=== PATIENT | male | born 1955 | race Caucasian/White ===

== ENCOUNTER 2022-05-02 13:03 | Observation (INO) | payer MEDICARE, BC, OTHER ==
[2022-05-02 13:43] LABS: Basophils % (A) 0 %; Eosinophils # (A) 0.1 k/uL (0-0.7); Eosinophils % (A) 1 %; HCT 46.2 % (39.0-53.0); Lymphocytes # (A) 1.7 k/uL (1.0-4.8); Lymphocytes % (A) 26 %; MCH 29.8 pg (25.0-35.0); MCHC 34.6 g/dL (31.0-37.0); MCV 86.3 fL (80.0-100.0); Mean Platelet Volume 7.5; Monocytes # (A) 0.4 k/uL (0-1.0); Monocytes % (A) 6 %; Neutrophils # (A) 4.2 k/uL (1.3-7.7); Neutrophils % (A) 65 %; Platelet Count 211 k/uL (150-450); RBC 5.35 m/uL (4.30-5.90); RDW 12.8 % (11.5-15.5); WBC 6.5 k/uL (3.8-10.6)
[2022-05-02 13:53] LABS: Albumin 4.5 g/dL (3.5-5.0); Calcium 9.5 mg/dL (8.4-10.2); Magnesium 2.1 mg/dL (1.6-2.3); Potassium 4.1 mmol/L (3.5-5.1); Total Bilirubin 0.9 mg/dL (0.2-1.3); Total Protein 7.6 g/dL (6.3-8.2)
[2022-05-02 13:54] LABS: Partial Thromboplastin Time 24.5 sec (22.0-30.0); Prothrombin Time 11.2 sec (9.0-12.0)
--- NOTE | 2022-05-02 13:54 | ED ---
Chest Pain HPI - General Chief Complaint: Chest Pain Stated Complaint: chest pain Source: patient Mode of arrival: ambulatory Limitations: no limitations - History of Present Illness Initial Comments: 67-year-old male with past medical history of CO who presents to the emergency department with chest pain and shortness of breath that started last night. Pain is located over the left side of the chest wall and is described as a pressure sensation without radiation. Reports to pounding heart rate. Symptoms are intermittent. Not presents upon hospital arrival. Does state that he's had a history of an CO in his 40s. He did not require stent placement. He has not followed with cardiology in several years. No recent stress testing. He denies fevers, chills or cough. No numbness or tingling into his extremities. No ripping or tearing sensation to his back. No other alleviating, precipitating or modifying factors - Related Data Home Medications Medication Instructions Recorded Confirmed Ibuprofen [Motrin] 800 mg PO TID PRN 05/02/22 05/02/22 Allergies Allergy/AdvReac Type Severity Reaction Status Date / Time clindamycin Allergy Rash/Hives Verified 05/02/22 14:55 sulfamethoxazole Allergy Rash/Hives Verified 05/02/22 14:55 [From Bactrim] trimethoprim [From Bactrim] Allergy Rash/Hives Verified 05/02/22 14:55 Review of Systems ROS Statement: Those systems with pertinent positive or pertinent negative responses have been documented in the HPI. ROS Other: All systems not noted in ROS Statement are negative. EKG Findings - EKG Comments: EKG Findings:: EKG demonstrates sinus rhythm with a rate of 60. DC interval 171. QRS 110. QTC of 411. No acute ST segment elevations. Inverted T waves with ST depression in lead 3 Past Medical History Past Medical History: Myocardial Infarction ([place]), Pneumonia Additional Past Medical History / Comment(s): BLOOD IN STOOL Last Myocardial Infarction Date:: 1999 History of Any Multi-Drug Resistant Organisms: MRSA Date of last positivie culture/infection: 2013 MDRO Source:: BACK Additional Past Surgical History / Comment(s): CHEST TUBE Past Anesthesia/Blood Transfusion Reactions: No Reported Reaction Past Psychological History: No Psychological Hx Reported Past Alcohol Use History: Rare Past Drug Use History: None Reported - Past Family History Mother Family Medical History: Cancer General Exam Limitations: no limitations Course Vital Signs 05/02/22 05/02/22 05/02/22 13:17 13:40 15:44 Temperature 97.6 F Pulse Rate 56 L 67 62 Pulse Rate [ Right] Respiratory 16 16 Rate Blood Pressure 161/97 165/93 142/79 Blood Pressure [Right Arm] O2 Sat by Pulse 98 99 96 Oximetry 05/02/22 16:00 Temperature 97.7 F Pulse Rate Pulse Rate [ 67 Right] Respiratory 17 Rate Blood Pressure Blood Pressure 147/84 [Right Arm] O2 Sat by Pulse 98 Oximetry Chest Pain MDM - MDM Upon arrival patient is placed into room 3. Thorough history and physical exam was performed. 12 lead EKG is obtained. Patient remained to continuous pulse ox and cardiac monitoring. Laboratory studies were conducted and reviewed. Troponin is negative. Chest x-ray demonstrates no acute process. Did recommend admission due to history of previous cardiac disease without significant cardiac evaluation. Patient was agreeable to this. Spoke with Dr. De La Fuente was agreeable Disposition Clinical Impression: Chest pain Disposition: ADMITTED IP TO THIS HOSP Condition: Stable Is patient prescribed a controlled substance at d/c from ED?: No Time of Disposition: 15:11 Decision to Admit Reason: Admit from EC Decision Date: 05/02/22 Decision Time: 15:11
--- NOTE | 2022-05-02 14:10 | XR ---
EXAMINATION TYPE: XR chest 2V DATE OF EXAM: 05/02/2022 COMPARISON: NONE HISTORY: Chest pain TECHNIQUE: FINDINGS: Heart and mediastinum are normal. Lungs are clear. Diaphragm is normal. Bony thorax appears intact. There is mild pectus excavatum chest deformity. IMPRESSION: Normal chest.
[2022-05-02] MEDS ORDERED: ASPIRIN 325 MG TAB PO STA (15:11)
[2022-05-02] MEDS ORDERED: NALOXONE 0.4 MG/ML 1 ML VIAL IV PRN (15:12)
--- NOTE | 2022-05-02 15:46 | P.HPIM ---
History of Present Illness H&P Date: 05/02/22 Chief Complaint: chest pain Patient is a 67-year-old former smoker presenting with acute chest pain that started at 10 PM yesterday. He claims that recently he has been going through a lot of stress with taking care of his . His is nonambulatory, and he has to help her move. While moving her at 10 PM, he started to experience chest pain in the substernal to left-sided region. To him he felt like a thumping sensation. He denies any radiation. He does occasionally feel short of breath after the chest pain. Chest pain is intermittent since last night and not always relieved with rest. Currently he is experiencing about 4/10 chest pain. He denies any lightheadedness, palpitations, nausea, vomiting, abdominal pain, diarrhea, constipation, or urinary complaints. He denies any recent sick contacts, or travel history. He is a former smoker, smoked 40 years one pack per day and quit in 2011. His father had an [place] at age 70, his mother had diabetes at age 60. Patient was sick with COVID-19 in 2019 and developed pericarditis. He did have similar chest pain at that time, but has resolved completely 3 months ago. When he was in his 20s, he did have a wall scraper that told him he had a valvular regurgitation. He had prior stress test, unclear when, which were negative. In the ED, patient's vital signs were unremarkable except for blood pressure 161/97. His lab work showed a creatinine of 1.29. Troponin was negative 1. EKG showed sinus rhythm with nonspecific ST changes. Chest x-ray was normal. Pertinent positives and negatives as discussed in HPI, a complete review of systems was performed and all other systems are negative. Patient seen and examined at bedside. Vital signs reviewed General: nontoxic, no distress, appears at stated age Derm: warm, dry Head: atraumatic, normocephalic, symmetric Eyes: EOMI, no lid lag, anicteric sclera, pupils equal round reactive to light ENT: Nose and ears atraumatic Neck: No thyromegaly, trachea midline, supple Mouth: no lip lesion, mucus membranes moist Cardiovascular: S1S2 reg, no murmur, positive posterior tibial pulse bilateral, no edema, capillary refill less than 2 seconds Lungs: clear to auscultation bilateral, no rhonchi, no rales, no wheeze, no accessory muscle use Abdominal: soft, nontender to palpation, no guarding, no appreciable organomegaly, normal bowel sounds Ext: no gross muscle atrophy, muscle strength muscle strength 5 out of 5 in all 4 extremities, no contractures Neuro: CN II-XII grossly intact, light touch intact all 4 extremities Psych: Alert, oriented, appropriate affect Assessment/Plan: Acute chest pain, rule out ACS -EKG - sinus rhythm with nonspecific ST changes -Chest x-ray -Troponin negative 1, repeat pending -Echocardiogram pending -TSH, hemoglobin A1c, lipid panel -Cardiology consult -Patient received aspirin 325 in the ED ANNA, possible -No prior labs to compare - Cr 1.29 - Monitor urine output, renal function Possible hypertension -Patient claims that his blood pressure is normal at PCP office -will monitor The patient is admitted with an anticipated less than 2 midnight stay for evaluation of chest pain. Surrogate decision-maker: CODE STATUS: DNR/DNI DVT prophylaxis: Heparin subcu Anticipated discharge date: 05/[address]: Home A total of 45 minutes was spent on the care of this complex patient more than 50% of the time was spent in counseling and care coordination. Past Medical History Past Medical History: Myocardial Infarction ([place]), Pneumonia Additional Past Medical History / Comment(s): BLOOD IN STOOL Last Myocardial Infarction Date:: 1999 History of Any Multi-Drug Resistant Organisms: MRSA Date of last positivie culture/infection: 2013 MDRO Source:: BACK Additional Past Surgical History / Comment(s): CHEST TUBE Past Anesthesia/Blood Transfusion Reactions: No Reported Reaction Past Psychological History: No Psychological Hx Reported Smoking Status: Former smoker Past Alcohol Use History: Rare Past Drug Use History: None Reported - Past Family History Mother Family Medical History: Cancer, Diabetes Mellitus, Myocardial Infarction (WA) Medications and Allergies Home Medications Medication Instructions Recorded Confirmed Type Ibuprofen [Motrin] 800 mg PO TID PRN 05/02/22 05/02/22 History Allergies Allergy/AdvReac Type Severity Reaction Status Date / Time clindamycin Allergy Rash/Hives Verified 05/02/22 14:55 sulfamethoxazole Allergy Rash/Hives Verified 05/02/22 14:55 [From Bactrim] trimethoprim [From Bactrim] Allergy Rash/Hives Verified 05/02/22 14:55 Physical Exam Vitals: Vital Signs Temp Pulse Resp BP Pulse Ox 05/02/22 15:44 62 142/79 96 05/02/22 13:40 67 16 165/93 99 05/02/22 13:17 97.6 F 56 L 16 161/97 98 Intake and Output 05/02/22 05/02/22 05/02/22 06:59 14:59 22:59 Other: Weight 88.451 kg Results CBC & Chem 7: 05/02/22 13:23 05/02/22 13:23 Labs: Abnormal Lab Results - Last 24 Hours (Table) 05/02/22 Range/Units 13:23 Creatinine 1.29 H (0.66-1.25) mg/dL Glucose 104 H (74-99) mg/dL
[2022-05-02] MEDS: HEPARIN SODIUM,PORCINE/PF 5,000 UNIT/0.5 ML SYRINGE SQ SCH ×2 (16:21→23:33)
[2022-05-03] MEDS: HEPARIN SODIUM,PORCINE/PF 5,000 UNIT/0.5 ML SYRINGE SQ SCH ×2 (08:18→16:44)
[2022-05-03] MEDS ORDERED: ASPIRIN 81 MG PO SCH (09:00)
[2022-05-03 09:31] LABS: Basophils # (A) 0.02 X 10*3/uL (0.00-0.10); Basophils % (A) 0.3 %; Eosinophils % (A) 1.6 %; HCT 43.1 % (39.6-50.0); HGB 14.4 g/dL (13.0-17.0); Immature Grans, Automated 0.2 %; Lymphocytes # (A) 2.07 X 10*3/uL (0.90-5.00); Lymphocytes % (A) 33.3 %; MCH 28.7 pg (27.0-32.0); MCHC 33.4 g/dL (32.0-37.0); MCV 85.9 fL (80.0-97.0); Mean Platelet Volume 9.9 fL (9.5-12.2); Monocytes # (A) 0.55 X 10*3/uL (0.20-1.00); Monocytes % (A) 8.8 %; NRBC Per 100 WBC 0 /100 WBCS (0.0-0.0); Neutrophils # (A) 3.47 X 10*3/uL (1.80-7.70); Neutrophils % (A) 55.8 %; Platelet Count 174 X 10*3/uL (140-440); RBC 5.02 X 10*6/uL (4.40-5.60); RDW 12.4 % (11.5-14.5); WBC 6.22 X 10*3/uL (4.50-10.00)
[2022-05-03 09:47] LABS: African American GFR (CKD) 63.5 (60.0-200.0); BUN/Creat Ratio 10.52 Ratio (12.00-20.00); Blood Urea Nitrogen 14.1 mg/dL (9.0-27.0); Calcium 8.8 mg/dL (8.7-10.3); Carbon Dioxide 24.3 mmol/L (20.0-27.5); Chloride 106 mmol/L (96-109); Chol/HDL Ratio 5.48 Ratio; Glucose 90 mg/dL (70-110); LDL Cholesterol,Calculated 140.6 mg/dL (0.0-131.0); Non-African American GFR(CKD) 54.8 (60.0-200.0); Potassium 4.2 mmol/L (3.5-5.5); Sodium 142 mmol/L (135-145); VLDL Calculation 18.76 mg/dL (5.00-40.00)
[2022-05-03] MEDS ORDERED: MAG HYDROX/AL HYDROX/SIMETH 30 ML, HYOSCYAMINE ELIXIR 10 ML, LIDOCAINE VISCOUS 2% 10 ML PO ONE ×3 (10:00)
--- NOTE | 2022-05-03 10:08 | P.CRDCN ---
History of Present Illness History of present illness: HISTORY OF PRESENTING ILLNESS This is a pleasant 67-year-old male past medical history significant for states he was told he had an [place] with no stenting per patient in his 40s, Covid-19 in 2020 and developed pericarditis, family history of coronary artery disease. He does not follow with a compound specialist. We have been asked to see in consultation for chest pain. Patient presents to the emergency department with complaints of chest discomfort. He states for months he has been having this "knot" feeling in the middle of his chest. He states yesterday he was at home, helping his who is the ultrasonic solderer of. He states he was helping move her. He had left sided chest discomfort. Non-radiating, non-exertional. He felt a "thumping" sensation in his chest. He states this has happened before but not this intense. He states he had associated shortness of breath. He states it lasted for less than a minute. He presents to the emergency room for further evaluation. He denies a history of stroke, hypertension, diabetes, dyslipidemia kidney disease. He is a former smoker, quit in 2011. DIAGNOSTICS * EKG reveals sinus bradycardia, heart rate 59, slow R wave progression, anterior changes that likely reflect prior infarct, second EKG with similar findings * Telemetry tracings indicate sinus rhythm, heart rate 50s to 60s, one episode of 6 beat run of NSVT. * Chest xray no acute cardiopulmonary process * Laboratory reviewed, troponin negative 3, CBC unremarkable, sodium 142, potassium 4.2, BUN 14.1, serum creatinine 1.3, triglycerides 93, LDL 140, HDL 35, TSH within normal limits, cholesterol 195 * Current home medications include PRN ibuprofen REVIEW OF SYSTEMS At the time of my exam: CONSTITUTIONAL: Denies fever or chills. CARDIOVASCULAR: Denies chest pain, shortness of breath, orthopnea, PND or palpitations. RESPIRATORY: Denies cough. GASTROINTESTINAL: Denies abdominal pain, diarrhea, constipation, nausea or vomiting. MUSCULOSKELETAL: Denies myalgias. NEUROLOGIC: Denies numbness, tingling, headache or weakness. ENDOCRINE: Denies fatigue, weight change, polydipsia or polyurina. GENITOURINARY: Denies burning, hematuria or urgency with micturation. HEMATOLOGIC: Denies history of anemia or bleeding. PHYSICAL EXAMINATION Blood pressure 145/81, heart 64, afebrile, saturations 97% on room air CONSTITUTIONAL: No apparent distress. HEENT: Head is normocephalic. Pupils are equal, round. Sclerae anicteric. Mucous membranes of the mouth are moist. No JVD. No carotid bruit. CHEST EXAMINATION: Lungs are clear to auscultation. No chest wall tenderness is noted on palpation or with deep breathing. HEART EXAMINATION: Regular rate and rhythm. S1, S2 heard. No murmurs, gallops or rub. ABDOMEN: Soft, nontender. Positive bowel sounds. EXTREMITIES: 2+ peripheral pulses, no lower extremity edema and no calf tenderness. SKIN: warm, dry NEUROLOGIC EXAMINATION: Patient is awake, alert and oriented x3. ASSESSMENT Chest pain, atypical, acute coronary syndrome has been ruled out Per patient history of W[place] with no stenting History of pericarditis Family history of coronary artery disease Former tobacco use Dyslipidemia PLAN An acute coronary event has been ruled out with no EKG evidence of ischemia and negative cardiac enzymes. Obtain 2D echocardiogram and doppler study to assess cardiac structure and function. Perform Stress Echo test to assess for stress induced cardiac ischemia. If abnormal will consider coronary angiography. Lipid panel reviewed, Current 10 year ASCVD risk 19.9% start patient on statin Continue aspirin 81mg daily If stress test and echocardiogram with no acute findings, no further inpatient workup from a cardiology perspective and recommend outpatient follow up Thank you kindly for this consultation. Nurse practitioner note has been reviewed by physician. Signing provider agrees with the documented findings, assessment, and plan of care. Past Medical History Past Medical History: Myocardial Infarction ([place]), Pneumonia Additional Past Medical History / Comment(s): BLOOD IN STOOL Last Myocardial Infarction Date:: 1999 History of Any Multi-Drug Resistant Organisms: MRSA Date of last positivie culture/infection: 2013 MDRO Source:: BACK Additional Past Surgical History / Comment(s): CHEST TUBE Past Anesthesia/Blood Transfusion Reactions: No Reported Reaction Past Psychological History: No Psychological Hx Reported Past Alcohol Use History: Rare Past Drug Use History: None Reported - Past Family History Mother Family Medical History: Cancer Medications and Allergies Home Medications Medication Instructions Recorded Confirmed Type Ibuprofen [Motrin] 800 mg PO TID PRN 05/02/22 05/02/22 History Allergies Allergy/AdvReac Type Severity Reaction Status Date / Time clindamycin Allergy Rash/Hives Verified 05/02/22 14:55 sulfamethoxazole Allergy Rash/Hives Verified 05/02/22 14:55 [From Bactrim] trimethoprim [From Bactrim] Allergy Rash/Hives Verified 05/02/22 14:55 Physical Exam Vitals: Vital Signs Temp Pulse Pulse Resp BP BP Pulse Ox 05/03/22 02:44 97.9 F 62 17 95/61 96 05/02/22 19:36 98.1 F 74 16 143/84 98 05/02/22 16:00 97.7 F 67 17 147/84 98 05/02/22 15:44 62 142/79 96 05/02/22 13:40 67 16 165/93 99 05/02/22 13:17 97.6 F 56 L 16 161/97 98 Intake and Output 05/02/22 05/03/22 05/03/22 22:59 06:59 14:59 Intake Total 240 Balance 240 Intake: Oral 240 Other: Voiding Method Toilet # Voids 2 2 Weight 88.451 kg Results 05/03/22 05:41 05/03/22 05:41 Cardiac Enzymes 05/02/22 05/02/22 05/02/22 Range/Units 13:23 13:23 17:51 AST 29 (17-59) U/L Troponin I <0.012 <0.012 (0.000-0.034) ng/mL 05/02/22 Range/Units 20:42 AST (17-59) U/L Troponin I <0.012 (0.000-0.034) ng/mL Coagulation 05/02/22 Range/Units 13:23 PT 11.2 (9.0-12.0) sec APTT 24.5 (22.0-30.0) sec CBC 05/02/22 Range/Units 13:23 WBC 6.5 (3.8-10.6) k/uL RBC 5.35 (4.30-5.90) m/uL Hgb 16.0 (13.0-17.5) gm/dL Hct 46.2 (39.0-53.0) % Plt Count 211 (150-450) k/uL Comprehensive Metabolic Panel 05/02/22 Range/Units 13:23 Sodium 139 (137-145) mmol/L Potassium 4.1 (3.5-5.1) mmol/L Chloride 105 (98-107) mmol/L Carbon Dioxide 23 (22-30) mmol/L BUN 14 (9-20) mg/dL Creatinine 1.29 H (0.66-1.25) mg/dL Glucose 104 H (74-99) mg/dL Calcium 9.5 (8.4-10.2) mg/dL AST 29 (17-59) U/L ALT 21 (4-49) U/L Alkaline Phosphatase 72 (38-126) U/L Total Protein 7.6 (6.3-8.2) g/dL Albumin 4.5 (3.5-5.0) g/dL Current Medications Generic Name Dose Route Start Last Admin Trade Name Freq PRN Reason Stop Dose Admin Aspirin 81 mg 05/03/22 09:00 Aspirin 81 Mg PO DAILY LAVERNE Heparin Sodium (Porcine) 5,000 unit 05/02/22 16:00 05/02/22 23:33 Heparin Sodium,Porcine/Pf 5,000 Unit/0.5 Ml Syringe SQ Not Given Q8HR LAVERNE Naloxone HCl 0.2 mg 05/02/22 15:12 Naloxone 0.4 Mg/Ml 1 Ml Vial IV Q2M PRN Opioid Reversal Intake and Output 05/02/22 05/03/22 05/03/22 22:59 06:59 14:59 Intake Total 240 Balance 240 Intake: Oral 240 Other: Voiding Method Toilet # Voids 2 2 Weight 88.451 kg 05/02/22 13:23 05/02/22 13:23
--- NOTE | 2022-05-03 13:14 | NM ---
EXAMINATION TYPE: NM stress cardiolite complete DATE OF EXAM: 05/03/2022 COMPARISON: NONE HISTORY: Chest pain TECHNIQUE: After the intravenous administration of 9.9 mCi Tc 99m Sestamibi - Rest images obtained 4 5 minutes post injection. The patient exercised using a MIGUELINA protocol and 1 minute prior to peak e xercise was injected with 25.4 mCi Tc 99m Sestamibi - Stress images obtained 10 minutes post injectio n. Patient achieved 100% of predicted maximal heart rate. FINDINGS: Targeted heart rate was achieved during performance of the study. Review of stress and rest SPECT alexander ges demonstrates decreased uptake on stress and rest images along the inferior wall left ventricle. Gut activity noted on the rest images. Gated analysis shows normal wall motion with an estimated lef t ventricular ejection fraction of 55 %. IMPRESSION: No scintigraphic evidence for reversible ischemia. Findings suggest prior infarct.
[2022-05-03 15:47] VITALS: BP 155/83; PULSE 70; RESP 17; TEMP 98
--- NOTE | 2022-05-03 17:04 | P.DS ---
Providers Date of admission: 05/02/22 15:12 Expected date of discharge: 05/03/22 Attending physician: Lorena Chaves MD Consults: 05/02/22 15:12 Consult Physician Urgent Consulting Provider: [facility] Consult Reason/Comments: acute chest pain, possible acs Do you want consulting provider notified?: Yes Primary care physician: Kervin Reed Hospital Course: Discharge Diagnosis: Chest pain, acute coronary event ruled out Hyperlipidemia, patient started on atorvastatin 20 mg nightly. GERD History of CAD with previous SD History of pericarditis Hospital Course: Patient is a very pleasant 67-year-old male with a past medical history of CAD with previous SD, Covid 19 and 2020 followed by development of pericarditis. He presented to the emergency department on 05/02/22 with a chief complaint of chest pain. Patient reports he has been under increased stress and has been caring for his ill . Patient reports while lifting his he developed sudden onset pain to midsternal and left anterior chest accompanied by a thumping sensation and mild shortness of breath. He underwent full evaluation in the emergency department. CBC, coags, and CMP were unremarkable. EKG showing sinus rhythm at 66 bpm with no noted T wave or ST abnormality showing no signs of acute ischemia. Chest x-ray negative for acute cardiopulmonary process. Troponin negative at less than 0.012. Patient was admitted under our services with consultation to cardiology. Troponins were trended overnight all negative at less than 0.012. Patient reports full resolution of previously reported chest pain, palpitations, and shortness of breath. He does report experiencing some mild gastric reflux this morning. Lipid profile revealing an elevated LDL of 140.6 and a low HDL of 35.60. Patient was evaluated by cardiology and underwent a Cardiolite stress test. Cardiolite stress test revealed EF of 55% negative for scintigraphic evidence for reversible ischemia but did show findings suggestive of prior infarct. Cardiology recommending outpatient follow-up in the office. Patient is medically clear at this time. He was started on atorvastatin 20 mg nightly secondary to elevated LDL levels. Patient to follow up outpatient with PCP in 1-2 days and with cardiology in 2 weeks. Physical exam: Patient seen and examined at bedside and reports he has remained free from any chest pain, palpitations, or shortness of breath. Vital signs reviewed and stable. General: Nontoxic, no distress and appears stated age. Derm: Skin warm and dry, normal coloration for ethnicity. Head: Atraumatic, normocephalic and symmetric. Eyes: EOMs intact, no lid lag, and anicteric sclera Mouth: no lip lesions, mucus membranes moist Cardiovascular: regular rate and rhythm with normal S1S2, no murmur, positive posterior tibial pulses bilaterally, and cap refill < 2 seconds. Lungs: Respirations even, regular, and unlabored on room air. Lungs CTA bilaterally, no rhonchi, no rales, no wheezing, and no accessory muscle usage. Abdominal: soft, nontender to palpation, no guarding, no appreciable organomegaly Ext: ROM intact. No gross muscle atrophy, no edema, no contractures Neuro: Speech clear, face symmetrical and CN II-XII grossly intact with no noted focal neuro deficits Psych: Alert and oriented to person, place, time, and situation. Appropriate and pleasant affect. A total of 37 minutes of time were spent preparing this complex discharge summary. Pt was discharged on 05/03/22 at 4:59 pm. Nishant Casper NP rendered care for this patient independently, reviewed the findings and plan as documented in the note above. I did not physically speak with or examine the patient on this date. Patient Condition at Discharge: Stable Plan - Discharge Summary Discharge Rx Participant: No New Discharge Prescriptions: New Atorvastatin [Lipitor] 20 mg PO HS 30 Days #30 tab Continue Ibuprofen [Motrin] 800 mg PO TID PRN PRN Reason: Pain Discharge Medication List Ibuprofen [Motrin] 800 mg PO TID PRN 05/02/22 [History] Atorvastatin [Lipitor] 20 mg PO HS 30 Days #30 tab 05/03/22 [Rx] Follow up Appointment(s)/Referral(s): Kervin Reed MD [Primary Care Provider] - 1-2 days Kobe Birch MD [STAFF PHYSICIAN] - 2 Weeks Activity/Diet/Wound Care/Special Instructions: Activity: As tolerated. Take breaks as needed. Diet: Heart healthy and carb consistent diet. Avoid salts, or foods with hidden salts such as canned or boxed foods and frozen dinners. Extra salt makes your heart work harder and traps the fluid in your body for longer. Special Instructions: Take all of your medications as directed and remember to keep all of your doctor's appointments and follow-up as needed. You will need to follow up outpatient with escrow assistant, Dr. Birch to receive full echocardiogram results, as report is not available at time of discharge. Thank you for allowing us to participate in your care, it was truly a pleasure having you for our patient!!! Discharge Disposition: HOME SELF-CARE
--- NOTE | 2022-05-03 17:43 | CA ---
Exercise Stress Test Report Name: Phong Dial Exam Date: 05/03/2022 12:05 Exam Location: [place] Stress Ht (in): 72 Wt (lb): 195 BSA: 2.11 Ordering Phys: Sujata Frye Referring Phys: DAVID,, Technologist: Hema Zimmer Age: 67 Gender: M : 1955 Procedure CPT: Indications: Reflex order-Stress test ICD-10 Codes: Patient History: Chest Pain Medications: Meds past 24 hrs: Pretest Chest Pain: STRESS TEST Adonay Protocol Exercise Duration (min:sec): 04:[address] Depressions (mm): Angina Score: Wong Score: Resting HR (bpm): 59 Peak HR (bpm): 165 Resting BP (mmHg): 140 / 92 Peak BP (mmHg): 204 / 101 MPHR: 154 Target HR: 131 % MPHR: 107 METS: 6.4 Total Dose: Peak Dose: Atropine: Double Product: 52440 BP Response: Stress Termination: Reached target heart rate Stress Symptoms: No chest pain or symptoms Stress Summary: ECG ANALYSIS Resting ECG: Normal sinus rhythm left axis deviation and poor R-wave progression Stress ECG: Patient exercised on Adonay protocol for a total of 4 and half minutes achieving 5 Mets 85% of predicted maximal heart rate without chest pain at peak exercise occasional PVCs were noted. No significant ST segment depression is noted CONCLUSIONS Poor exercise tolerance Negative stress test by EKG criteria Dr. Kobe Birch MD (Electronically Signed) Final Date: 03 May 2022 17:42
--- NOTE | 2022-05-03 17:44 | CA ---
Transthoracic Echo Report Name: Phong Dial Age: 67 Gender: M : 1955 Exam Date: 05/03/2022 10:42 Exam Location: [facility] Ht (in): 72 Wt (lb): 195 Ordering Physician: Hilario Martínez MD Attending/Referring Phys: Children Librarian Astrid Prince RDCS Procedure CPT: Indications: Chest Pain Cardiac Hx: Technical Quality: Fair Contrast 1: Total Dose (mL): Contrast 2: Total Dose (mL): MEASUREMENTS (Male / Female) Normal Values 2D ECHO LV Diastolic Diameter PLAX 5.0 cm 4.2 - 5.9 / 3.9 - 5.3 cm LV Systolic Diameter PLAX 2.7 cm IVS Diastolic Thickness 1.0 cm 0.6 - 1.0 / 0.6 - 0.9 cm LVPW Diastolic Thickness 1.0 cm 0.6 - 1.0 / 0.6 - 0.9 cm LV Relative Wall Thickness 0.4 RV Internal Dim ED PLAX 2.9 cm LA Systolic Diameter LX 3.3 cm 3.0 - 4.0 / 2.7 - 3.8 cm M-MODE Aortic Root Diameter MM 3.7 cm MV E Point Septal Separation 1.0 cm AV Cusp Separation MM 2.5 cm DOPPLER AV Peak Velocity 79.2 cm/s AV Peak Gradient 2.5 mmHg MV Area PHT 3.4 cm??? Mitral E Point Velocity 52.9 cm/s Mitral A Point Velocity 66.4 cm/s Mitral E to A Ratio 0.8 MV Deceleration Time 221.8 ms FINDINGS Left Ventricle Left ventricular ejection fraction is estimated at 50-55 %. Left ventricular cavity size normal. Left ventricular wall thickness normal. Right Ventricle Normal right ventricular size and function. Unable to estimate the right ventricular systolic pressure. Right Atrium Normal right atrial size. Left Atrium Normal left atrial size. Mitral Valve Structurally normal mitral valve. No mitral stenosis, regurgitation or prolapse. Aortic Valve Trileaflet aortic valve. No aortic valve stenosis or regurgitation. Tricuspid Valve Structurally normal tricuspid valve. Pulmonic Valve Structurally normal pulmonic valve. Pericardium Normal pericardium. No pericardial effusion. Aorta Normal size aortic root and proximal ascending aorta. CONCLUSIONS Normal left ventricular size and systolic function Previewed by: Dr. Kobe Birch MD (Electronically Signed) Final Date: 03 May 2022 17:44
[2022-05-03] MEDS ORDERED: ATORVASTATIN 20 MG TAB PO SCH (21:00)
== END 2022-05-03 17:59 | disposition home or self-care (01) ==
LOC: EC 13:03 → 6NMEDSUR 15:12
PROVIDERS: ADMIT Family Medicine; ATTEND Family Medicine
DX: R07.89 Other chest pain (principal); R06.02 Shortness of breath; I25.10 Atherosclerotic heart disease of native coronary artery without angina pectoris; E78.5 Hyperlipidemia, unspecified; K21.9 Gastro-esophageal reflux disease without esophagitis; R00.1 Bradycardia, unspecified; I25.2 Old myocardial infarction; Z66 Do not resuscitate; Z87.01 Personal history of pneumonia (recurrent); Z86.14 Personal history of Methicillin resistant Staphylococcus aureus infection; Z97.8 Presence of other specified devices; Z87.891 Personal history of nicotine dependence; Z86.16 Personal history of COVID-19; Z86.79 Personal history of other diseases of the circulatory system; Z80.9 Family history of malignant neoplasm, unspecified; Z83.3 Family history of diabetes mellitus; Z82.49 Family history of ischemic heart disease and other diseases of the circulatory system; Z88.1 Allergy status to other antibiotic agents; Z88.2 Allergy status to sulfonamides
CPT/HCPCS: 99285; 36415; 93005; 93017; 93306; 80061; 80053; 80048; 84443; 83735; 84484; 85025 ×2; 85610; 85730; 83036; 71046; 78452; G0378 ×2; A9500